=== PATIENT | female | born 1985 | race African-American/Black ===

== ENCOUNTER 2019-04-02 10:59 | Emergency (ER) | payer MEDICAID ==
[~2019-04-02] VITALS: Ht 167.6 cm; Wt 80.7 kg
[2019-04-02] MEDS ORDERED: NKM (11:08)
--- NOTE | 2019-04-02 11:35 | NUR ---
ED Nurse Note: Patient arrived to ER by car. pt complains of left thigh pain that she has had for weeks, but has gotten worse the last 2 days. pt stated she can barely walk beause the pain is so bad. Pain is 8/10 after taking ibuprofen, but is a 10/10 without meds. Pain is brought on when flexing at the hip joint. CMS good distally. Urine sent to lab. Patient calm and in no distress
--- NOTE | 2019-04-02 11:38 | Emergency Room Report ---
History of Present Illness General Chief Complaint: Pain Source: Patient Present Illness HPI Patient is a 34-year-old female presents for increased left-sided thigh pain. She denies any increased swelling to the area. She had no recent travel or injury. She denies any calf pain or swelling. Denies any skin changes. Pain is worse with movements. Denies any fever. No vomiting or diarrhea. Allergies: Coded Allergies: No Known Allergies (Unverified , 04/02/19) Patient History Past Medical History: see triage record Last Menstrual Period: 03/17/19 Now: No : 3 Para: 3 Reviewed Nursing Documentation: PMH: Agreed; PSxH: Agreed Nursing Documentation-PMH Past Medical History: No Stated History Review of Systems All Other Systems: negative except mentioned in HPI Physical Exam Vital Signs Date Time Temp Pulse Resp B/P (MAP) Pulse Ox O2 Delivery O2 Flow Rate FiO2 04/02/19 11:00 97.9 85 18 115/70 (85) 98 Room Air General Appearance: well appearing, no apparent distress, alert, GCS 15 Head: normocephalic, atraumatic ENT: hearing grossly normal, normal voice Neck: full range of motion, supple Respiratory: no respiratory distress, speaking full sentences Cardiovascular #1: normal inspection, normal peripheral pulses, no edema Gastrointestinal: normal inspection, non tender, soft Musculoskeletal: normal inspection, no calf tenderness Neurologic: normal inspection, alert, oriented x3, responsive, normal gait Psychiatric: mood/affect normal Skin: no rash Medical Decision Making Diagnostic Impression: Primary Impression: Thigh pain, musculoskeletal ER Course Patient presented for thigh pain. Differential diagnosis include was not limited to contusion, muscle strain, fracture, among others. Patient has a benign exam and does not appear to require any laboratory testing at this time. Patient does not appear to have any evidence of acute bony injury. She is advised outpatient follow-up with her primary care physician for recheck and possible imaging if continued pain. The patient is advised to follow up with primary care doctor in 1-2 days. Patient is advised to return if any worsening condition or if any changes in status that are concerning. This report is dictated with [employer] mill operator software which may occasionally lead to discrepancies related to use of this software. Labs Test 04/02/19 11:30 Urine HCG, Qualitative Negative (NEGATIVE) Last Vital Signs Date Time Temp Pulse Resp B/P (MAP) Pulse Ox O2 Delivery O2 Flow Rate FiO2 04/02/19 11:00 97.9 85 18 115/70 (85) 98 Room Air Status: improved Disposition: HOME, SELF-CARE Condition: Stable Scripts Cyclobenzaprine Hcl* (FLEXERIL*) 10 Mg Tablet 10 MG ORAL THREE TIMES A DAY, #20 TAB Prov: Slade Godoy MD 04/02/19 Ibuprofen* (MOTRIN*) 600 Mg Tablet 600 MG ORAL Q8H PRN for For Pain, #30 TAB 0 Refills Prov: lSade Godoy MD 04/02/19 Slade Godoy MD Apr 02, 2019 11:38
[2019-04-02] MEDS ORDERED: Acetaminophen 500mg (ES) tab ORAL ONE (11:45)
--- NOTE | 2019-04-02 11:48 | NUR ---
ED Nurse Note: Patient denies abdominal pain, n/v, diarrhea. Denies urinary frequency or hematuria or dysuria.
[2019-04-02] MEDS ORDERED: CYCLOBENZAPRINE10 MG ORAL (13:29)
[2019-04-02] MEDS ORDERED: IBUPROFEN600 MG ORAL (13:29)
[2019-04-02 13:43] VITALS: BP 122/76
--- NOTE | 2019-04-02 13:43 | NUR ---
ER DISCHARGE NOTE: Patient is cleared to be discharged per ERMD, pt is aox4, on room air, with stable vital signs. pt was given dc and prescription instructions, pt was able to verbalize understanding, pt id band removed. pt is able to ambulate with steady gait. pt took all belongings.
== END 2019-04-02 13:43 | disposition home or self-care (01) ==
LOC: EMR 11:40
DX: M79.652 Pain in left thigh (principal)
CPT/HCPCS: 81025; Z7502; 99283